=== PATIENT | female | born 2000 | race Asian ===

== ENCOUNTER 2024-07-21 03:48 | Emergency (ER) | payer OTHER ==
[~2024-07-21] VITALS: Ht 157.5 cm; Wt 59.0 kg
[2024-07-21] MEDS ORDERED: 0.9 % SODIUM CHLORIDE 1,000 ML IV STA (04:43)
[2024-07-21] MEDS ORDERED: PROMETHAZINE HCL 50 MG/ML AMPUL IM STA (04:44)
[2024-07-21] MEDS ORDERED: FAMOtidine 10 MG/ML (4ML VIAL) IV PUSH STA (04:44)
[2024-07-21 05:17] LABS: HEMATOCRIT 38.9 % (36.0-45.00); HEMOGLOBIN 13.1 g/dL (12.0-15.00); MEAN CELL VOLUME 89.1 fL (80.00-100.00); MEAN CORPUSCULAR HGB CONC 33.7 g/dl (32.0-36.0); PLATELET COUNT 229 K/uL (150-450); RED BLOOD COUNT 4.37 M/uL (4.00-6.00); RED CELL DISTRIBUTION WIDTH 12.8 % (11.5-14.5)
[2024-07-21 06:47] LABS: BILIRUBIN TOTAL 0.43 mg/dL (0.3-1.2); CALCIUM 8.8 mg/dL (8.5-10.1); CREATININE SERUM 0.72 mg/dL (0.55-1.02); GFR 100.38; GLOBULINA 3.6 G/DL (2.4-3.5); POTASSIUM 3.82 mEq/L (3.5-5.1); TOTAL PROTEIN 7.6 gm/dL (6.4-8.2)
[2024-07-21 08:11] LABS: COCAINE NEGATIVE (NEGATIVE); METHADONE NEGATIVE (NEGATIVE); OPIATES NEGATIVE (NEGATIVE)
[2024-07-21 08:40] LABS: THC ( Cannabinoids) POSITIVE (NEGATIVE)
== END 2024-07-21 08:46 | disposition home or self-care (01) ==
LOC: EDBD 03:50 → ER 03:50
DX: F19.10 Other psychoactive substance abuse, uncomplicated (principal)